=== PATIENT | male | born 1955 | race Caucasian/White ===

== ENCOUNTER → 2023-04-14 12:59 | Outpatient (CLI) | payer BC, SELFPAY ==
--- NOTE | ~2023-04-14 | XR_ITS ---
XR chest 2V DATE: 04/14/2023 13:18 INDICATION: Wheezing TECHNIQUE: 2 views COMPARISON: None FINDINGS: Bilateral hyperinflation. No pulmonary infiltrate or consolidation, pleural effusion or pul monary vascular congestion or pneumothorax is detected. Normal heart size. No hilar or mediastinal en largement. IMPRESSION: Bilateral hyperinflation Reviewed, dictated and finalized at location L. IMPRESSION: Bilateral hyperinflation
== END ==
PROVIDERS: PCP Family Medicine; Visit Provider Family Medicine
DX: I10 Essential (primary) hypertension (principal); G25.0 Essential tremor; E78.5 Hyperlipidemia, unspecified; R73.9 Hyperglycemia, unspecified; G47.30 Sleep apnea, unspecified; I45.6 Pre-excitation syndrome; Z12.5 Encounter for screening for malignant neoplasm of prostate; R06.2 Wheezing; E42 Marasmic kwashiorkor
CPT/HCPCS: 71046

== ENCOUNTER 2024-05-02 08:35 | Outpatient (CLI) | payer BC, SELFPAY ==
[2024-05-02 09:54] LABS: Prostate Specific Antigen 4.4 ng/mL (< OR = 4.0)
== END 2024-05-02 08:36 | disposition home or self-care (01) ==
LOC: ANHLAB 08:37
PROVIDERS: PCP Family Medicine; Visit Provider Family Medicine
DX: R97.20 Elevated prostate specific antigen [PSA] (principal)
CPT/HCPCS: 36415; 84153

== ENCOUNTER 2024-05-09 10:05 | Outpatient (CLI) | payer BC, SELFPAY ==
--- NOTE | ~2024-05-09 | CT_ITS ---
CTA brain carotid Ordering provider: Jessenia Granados MD History: . HTN, visual changes, dizziness . Comparison: None. Technique: CT angiogram head and neck was performed following timed intravenous injection of contrast . Thin slice axial images and reformatted coronal images were obtained. Three dimensional reformatted images of the brain were also obtained using a [employer] workstation. Radiation reduction technique ut ilized.The dose-length product was 1714.92 mGy-cm. 100 mL Omnipaque 350 was given IV. 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 Clinical correlation advised. Normal --ANTERIOR AND MIDDLE CEREBRAL ARTERIES AND BRANCHES: Normal caliber and contour. --INTERNAL CAROTID ARTERIES: Mild atheromatous disease but no significant stenosis. No occlusion. --BASILAR ARTERY AND BRANCHES: Normal caliber and contour. No atheromatous disease. --POSTERIOR CEREBRAL ARTERIES: Normal caliber and contour --POSTERIOR COMMUNICATING ARTERIES: Not visualized which is probably related to congenital absence or small size. --ANEURYSM: None visualized. --BRAIN: No acute intracranial process. Mild degenerative departmental ischemic changes. A --BONES AND SUPERFICIAL SOFT TISSUES: Bone protrusion from the lower mandible medially. Clinical eval uation advised. --PARANASAL SINUSES AND MASTOIDS: Please refer to report of CT head done the same day. NECK: --RIGHT CERVICAL CAROTID SYSTEM: Normal caliber and contour. Percent stenosis per NASCET criteria is 0%. No carotid dissection. Otherwise, no significant atheromatous disease or stenosis of the cervica l carotid system. --LEFT CERVICAL CAROTID SYSTEM: Normal caliber and contour. Percent stenosis per NASCET criteria is 0%. No carotid dissection. Otherwise, no significant atheromatous disease or stenosis of the cervical carotid system. Tortuosity seen in the upper left carotid artery. --VERTEBRAL ARTERIES: Normal caliber and contour. --VISUALIZED AORTIC ARCH AND BRANCHING VESSELS: Mild atheromatous disease but no significant stenosis . --SOFT TISSUES: Normal. --CERVICAL SPINE: Age appropriate degenerative changes. IMPRESSION: 1. Normal CTA head and neck. Percent stenosis per NASCET criteria is 0%. Reviewed, dictated and finalized at location A.
[2024-05-09 10:51] LABS: Estimated Glomerular Filt Rate > 60
== END 2024-05-09 10:06 | disposition home or self-care (01) ==
LOC: MICIMG 10:05
PROVIDERS: PCP Family Medicine; Visit Provider Family Medicine
DX: I10 Essential (primary) hypertension (principal); H53.9 Unspecified visual disturbance; R42 Dizziness and giddiness; I25.10 Atherosclerotic heart disease of native coronary artery without angina pectoris
CPT/HCPCS: 70496; 70498; Q9967